=== PATIENT | male | born 1985 | race Caucasian/White ===

== ENCOUNTER 2017-11-04 14:35 | Emergency (ER) | payer MEDICAID ==
[2017-11-04] MEDS ORDERED: CEPHALEXIN 500 MG CAPSULE PO STA (14:54)
[2017-11-04] MEDS ORDERED: ACETAMINOPHEN W/ CODEINE 300MG/30MG TABLET PO ONE (14:54)
--- NOTE | 2017-11-04 14:58 | Emergency Department Record ---
History of Present Illness - General Chief Complaint: Laceration(s) Stated Complaint: LACERATION ON FINGER Time Seen by Provider: 11/04/17 14:47 Source: Patient Mode of Arrival: Ambulatory Limitations: No limitations - History of Present Illness Initial Commments: The patient is here due to cutting his L 2nd finger pad on a miter saw. His Td is UTD. Onset/Timin -: Minutes(s) Place: Other Context: Accidental Associated Symptoms: None - Amanda Coma Scale Eye Response: (4) Open spontaneously Motor Response: (6) Obeys commands Verbal Response: (5) Oriented [place] Total: 15 - Related Data Previous Rx's Medication Instructions Recorded Acetaminop W/ Codeine 300/30Mg 1 - 2 tab PO Q6H #20 tab 11/04/17 [Tylenol #3] Cephalexin [Keflex] 500 mg PO QID #28 cap 11/04/17 Allergies Allergy/AdvReac Type Severity Reaction Status Date / Time amoxicillin Allergy PT UNSURE Verified 09/01/14 04:40 OF REACTION NSAIDS (Non-Steroidal Allergy HIVES Verified 09/01/14 04:40 Anti-Inflamma Travel Screening - Travel/Exposure Within Last 30 Days Have you traveled within the last 30 days?: No - Travel/Exposure Within Last Year Have you traveled outside the [place] in the last year?: No - Additonal Travel Details Have you been exposed to anyone with a communicable illness?: No - Travel Symptoms Symptom Screening: None Review of Systems Constitutional: Denies: Chills, Fever Past Medical History - SOCIAL HISTORY Smoking Status: Current every day smoker Alcohol Use: None Drug Use: None - RESPIRATORY Hx Respiratory Disorders: No - CARDIOVASCULAR Hx Cardio Disorders: No - NEURO Hx Neuro Disorders: No - GI Hx GI Disorders: No - Hx Genitourinary Disorders: No - ENDOCRINE Hx Endocrine Disorders: No - MUSCULOSKELETAL Hx Musculoskeletal Disorders: No - PSYCH Hx Psych Problems: No - HEMATOLOGY/ONCOLOGY Hx Hematology/Oncology Disorders: No Family Medical History Any Significant Family History?: No Physical Exam - General General Appearance: Alert, Cooperative, No acute distress - Head Head exam: Atraumatic, Normocephalic - Eye Eye exam: Normal appearance, PERRL - Extremities Extremities exam: Full ROM, Tenderness. negative: Normal inspection (The distal 1/2 of the finger pad radial side has been avulsed. There is no visible bone or tendon. The patient's DIP joint flexion is intact.) Image of Finger Tip: 1 - Avulsed off the L 2nd finger. No bone or tendon involved. Course Vital Signs 11/04/17 14:41 Temperature 97.7 F Pulse Rate 62 Respiratory 16 Rate Blood Pressure 123/58 Pulse Ox 98 - Reevaluation(s) Reevaluation #1: Procedure note: The L 2nd finger was anesth. with 3 cc's Lido 1%. The wound was debrided of and devitalized tissue minimally and scrubbed with sterile saline and betadine. There was no bone or tendon involvement. There were no complications. 11/04/17 15:49 Reevaluation #2: I did discuss the issues with Dr. Bruce Kirkpatrick (hand surgeon) and he agrees to see the patient in F/U. 11/04/17 16:15 Disposition Disposition: Discharge Clinical Impression: Avulsion of finger tip Qualifiers: Encounter type: initial encounter Qualified Code(s): S61.209A - Unspecified open wound of unspecified finger without damage to nail, initial encounter Disposition: Home, Self-Care Condition: (2) Stable Instructions: Laceration (ED) Additional Instructions: Keep dry until evaluation by the hand surgeon. Take the Keflex as directed and Tylenol # [address] for [address] Please see Dr. Kirkpatrick for recheck tomorrow. Return to the ER for any further problems or issues. Prescriptions: Acetaminop W/ Codeine 300/30Mg [Tylenol #3] 1 - 2 tab PO Q6H #20 tab Cephalexin [Keflex] 500 mg PO QID #28 cap Referrals: BRUCE KIRKPATRICK M.D. [MEDICAL DOCTOR] - Forms: Patient Portal Access Time of Disposition: 15:53 Quality - Quality Measures Quality Measures: N/A - Blood Pressure Screening View Details: Yes Does Patient Have Any of the Following: No Blood Pressure Classification: Normal BP Reading Systolic Measurement: 111 Diastolic Measurement: 66 Screening for High Blood Pressure: < Normal BP, F/U Not Required > [G8783]
--- NOTE | 2017-11-05 14:50 | RADIOLOGY REPORT ---
EXAM: LEFT INDEX FINGER HISTORY: INJURY. TECHNIQUE: Three views of the left index finger were obtained. Comparison: None. Encounter: Initial. FINDINGS: Extensive soft tissue injury distally, however, no radiographic evidence for an acute fracture or dislocation. No radiopaque foreign body. IMPRESSION: EXTENSIVE SOFT TISSUE INJURY OF THE INDEX FINGER DISTALLY. JOB NUMBER: [id number] MTDD
== END 2017-11-04 16:08 | disposition home or self-care (01) ==
LOC: ER 14:35
DX: S61.217A Laceration without foreign body of left little finger without damage to nail, initial encounter (principal); W31.2XXA Contact with powered woodworking and forming machines, initial encounter; F17.210 Nicotine dependence, cigarettes, uncomplicated
CPT/HCPCS: 11042; 73140; 99283

== ENCOUNTER 2017-11-06 12:22 | Emergency (ER) | payer MEDICAID ==
--- NOTE | 2017-11-06 12:28 | Emergency Department Record ---
History of Present Illness - General Chief Complaint: Wound, check Stated Complaint: RECHECK Time Seen by Provider: 11/06/17 12:27 Source: Patient Mode of arrival: Ambulatory Limitations: No limitations - History of Present Illness Initial Comments: The patient is here for recheck due to a L 2nd finger pad avulsion 2 days ago. He does have an appointment with a hand surgeon for Wednesday in 2 days. He is doing well with little pain at this time. MD Complaint: Wound re-check Onset/Timin -: Days(s) - Related Data Previous Rx's Medication Instructions Recorded Acetaminop W/ Codeine 300/30Mg 1 - 2 tab PO Q6H #20 tab 11/04/17 [Tylenol #3] Cephalexin [Keflex] 500 mg PO QID #28 cap 11/04/17 Allergies Allergy/AdvReac Type Severity Reaction Status Date / Time amoxicillin Allergy PT UNSURE Verified 11/06/17 12:34 OF REACTION NSAIDS (Non-Steroidal Allergy HIVES Verified 11/06/17 12:34 Anti-Inflamma Past Medical History - SOCIAL HISTORY Smoking Status: Current every day smoker Drug Use: None - RESPIRATORY Hx Respiratory Disorders: No - CARDIOVASCULAR Hx Cardio Disorders: No - NEURO Hx Neuro Disorders: No - GI Hx GI Disorders: No - Hx Genitourinary Disorders: No - ENDOCRINE Hx Endocrine Disorders: No - MUSCULOSKELETAL Hx Musculoskeletal Disorders: No - PSYCH Hx Psych Problems: No - HEMATOLOGY/ONCOLOGY Hx Hematology/Oncology Disorders: No Physical Exam - General General Appearance: Alert, Cooperative, No acute distress - Head Head exam: Atraumatic, Normocephalic - Extremities Extremities exam: Tenderness. negative: Normal inspection (There is a finger pad avulsion distal to the DIP joint. The wound appears to be healing well with no signs of infection.) Course - Reevaluation(s) Reevaluation #1: I discussed the need to continue the present treatment plan. 11/06/17 12:37 Disposition Disposition: Discharge Clinical Impression: Avulsion of finger tip Qualifiers: Encounter type: subsequent encounter Qualified Code(s): S61.209D - Unspecified open wound of unspecified finger without damage to nail, subsequent encounter Disposition: Home, Self-Care Condition: (2) Stable Instructions: Finger Amputation (ED) Additional Instructions: Keep dry for the next 2 days and continue your present medicines. Please keep the appointment with your hand surgeon for Wednesday as planned. Please also see your family doctor to have your blood pressure rechecked next week. Forms: Patient Portal Access Time of Disposition: 12:39 Quality - Quality Measures Quality Measures: N/A - Blood Pressure Screening View Details: Yes Does Patient Have Any of the Following: No Blood Pressure Classification: Hypertensive Reading Systolic Measurement: 140 Diastolic Measurement: 105 Screening for High Blood Pressure: < First Hypertensive BP, F/U Documented > [ G8950] First Hypertensive Follow-up Interventions: Referral to alternative/primary care provider.
== END 2017-11-06 12:51 | disposition home or self-care (01) ==
LOC: ER 12:22
DX: S61.217A Laceration without foreign body of left little finger without damage to nail, initial encounter (principal); W31.2XXA Contact with powered woodworking and forming machines, initial encounter; F17.210 Nicotine dependence, cigarettes, uncomplicated
CPT/HCPCS: 99282

== ENCOUNTER 2018-02-10 19:49 | Emergency (ER) | payer MEDICAID ==
--- NOTE | 2018-02-10 20:02 | Emergency Department Record ---
History of Present Illness - General Chief complaint: Dental Stated complaint: DENTAL PAIN Time Seen by Provider: 02/10/18 19:52 Source: Patient Mode of Arrival: Ambulatory Limitations: No limitations - History of Present Illness Initial comments: 32 yo male presents to ED for evaluation of dental pain for the past several days, reports history of dental caries to the right posterior mandible for some time. Patient reports the he called several dentists, however did not want to drive to [place] to be seen today. Patient reports pain symptoms and mild swelling to the affected tooth, denies fevers, chills, or ear pain symptoms. Patient denies health problems at his baseline. MD complaint: Tooth pain Onset/Timin -: Days(s) Location: Tooth # 1 - Dental caries Severity: Moderate Quality: Aching Consistency: Constant Improves with: None Context- Dental: History of dental caries - Related Data Previous Rx's Medication Instructions Recorded Clindamycin HCl 300 mg PO Q6H #28 capsule 02/10/18 Allergies Allergy/AdvReac Type Severity Reaction Status Date / Time amoxicillin Allergy PT UNSURE Verified 11/06/17 12:34 OF REACTION NSAIDS (Non-Steroidal Allergy HIVES Verified 11/06/17 12:34 Anti-Inflamma Review of Systems Constitutional: Denies: Chills, Fever, Malaise, Night sweats Eyes: Denies: Eye discharge, Eye pain ENT: Reports: Dental pain. Denies: Congestion, Ear pain Respiratory: Denies: Cough, Dyspnea Cardiovascular: Denies: Chest pain, Dyspnea on exertion Endocrine: Denies: Fatigue, Heat or cold intolerance Gastrointestinal: Denies: Abdominal pain, Nausea, Vomiting Genitourinary: Denies: Incontinence, Retention Musculoskeletal: Denies: Arthralgia, Back pain, Gout, Joint swelling Skin: Denies: Bruising, Change in color Neurological: Denies: Abnormal gait, Confusion, Headache, Seizure Psychiatric: Denies: Anxiety Hematological/Lymphatic: Denies: Anemia, Blood Clots Past Medical History - SOCIAL HISTORY Smoking Status: Current every day smoker Drug Use: None - RESPIRATORY Hx Respiratory Disorders: No - CARDIOVASCULAR Hx Cardio Disorders: No - NEURO Hx Neuro Disorders: No - GI Hx GI Disorders: No - Hx Genitourinary Disorders: No - ENDOCRINE Hx Endocrine Disorders: No - MUSCULOSKELETAL Hx Musculoskeletal Disorders: No - PSYCH Hx Psych Problems: No - HEMATOLOGY/ONCOLOGY Hx Hematology/Oncology Disorders: No Physical Exam - General General Appearance: Alert, Oriented x3, Cooperative, Mild distress Limitations: No limitations - Head Head exam: Atraumatic, Normocephalic, Normal inspection Head exam detail: negative: Abrasion, Contusion, Rodriguez's sign, General tenderness, Hematoma, Laceration - Eye Eye exam: Normal appearance. negative: Conjunctival injection, Periorbital swelling, Periorbital tenderness, Scleral icterus - ENT Ear exam: negative: Auricular hematoma, Auricular trauma Nasal Exam: negative: Active bleeding, Discharge, Dried blood, Foreign body Mouth exam: negative: Drooling, Laceration, Muffled voice, Tongue elevation Teeth exam: Dental caries, Dental tenderness # Image of Mouth/Teeth: 1 - Dental caries present, no gingival abscess is present on examination - Neck Neck exam: Normal inspection. negative: Meningismus, Tenderness - Respiratory Respiratory exam: Normal lung sounds bilaterally. negative: Rales, Respiratory distress, Rhonchi, Stridor - Cardiovascular Cardiovascular Exam: Regular rate, Normal rhythm, Normal heart sounds - GI/Abdominal GI/Abdominal exam: Soft. negative: Rebound, Rigid, Tenderness - Rectal Rectal exam: Deferred - exam: Deferred - Extremities Extremities exam: Normal inspection. negative: Pedal edema, Tenderness - Neurological Neurological exam: Alert, Normal gait, Oriented X3 - Psychiatric Psychiatric exam: Normal affect, Normal mood - Skin Skin exam: Normal color. negative: Abrasion Type of lesion: negative: abrasion Course - Reevaluation(s) Reevaluation #1: 02/10/18 20:01 Will initiate treatment with Clindamycin with instructions for the patient to seek dental follow-up in 1-3 days as directed. Dental referral form was given to the patient as well. Patient appears stable for discharge at this time. Disposition Disposition: Discharge Clinical Impression: Dental caries Disposition: Home, Self-Care Condition: (2) Stable Instructions: Dental Abscess (ED) Additional Instructions: Return to ED if your symptoms worsen or if you have any concerns. Clindamycin as directed. Follow-up with a dentist from the referral list in 1-3 days as directed. Prescriptions: Clindamycin HCl 300 mg PO Q6H #28 capsule Forms: Patient Portal Access Time of Disposition: 20:03 Quality - Quality Measures Quality Measures: N/A - Blood Pressure Screening Does Patient Have Any of the Following: No Blood Pressure Classification: Hypertensive Reading Systolic Measurement: 134 Diastolic Measurement: 107 Screening for High Blood Pressure: < First Hypertensive BP, F/U Documented > [ G8950] First Hypertensive Follow-up Interventions: Referral to alternative/primary care provider.
[2018-02-10] MEDS ORDERED: CLINDAMYCIN 150 MG CAP PO ONE (20:04)
== END 2018-02-10 20:17 | disposition home or self-care (01) ==
LOC: ER 19:49
DX: K02.9 Dental caries, unspecified (principal); F17.210 Nicotine dependence, cigarettes, uncomplicated
CPT/HCPCS: 99282